=== PATIENT | male | born 2000 | race Caucasian/White ===

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

== ENCOUNTER 2021-08-08 19:54 | Emergency (ER) | payer OTHER, MEDICARE ==
[~2021-08-08 19:54] MED LIST: IBUPROFEN600 MG PO
[2021-08-08 20:38] LABS: HEMOGLOBIN 14.5 gm/dl (14.0-17.5); RED BLOOD COUNT 5.05 M/UL (4.20-5.50); WHITE BLOOD COUNT 7.3 K/UL (4.5-11.0)
[2021-08-08 21:02] LABS: BUN/CREATININE RATIO 11 (0-10)
== END 2021-08-08 22:00 | disposition home or self-care (01) ==
LOC: ER1 19:54
PROVIDERS: Physician Assistant Medical
DX: R05.9 Cough, unspecified (principal); R04.2 Hemoptysis; F17.220 Nicotine dependence, chewing tobacco, uncomplicated; Z88.1 Allergy status to other antibiotic agents; Z88.0 Allergy status to penicillin
CPT/HCPCS: 71046; 80053; 85025; 85379; 99283